=== PATIENT | female | born 1950 | race Caucasian/White ===

== ENCOUNTER → 2019-12-10 11:08 | Outpatient (BNVA) | payer MEDICARE, OTHER, SELFPAY | PROVIDERS: Family Provider Nurse Practitioner Family; PCP Nurse Practitioner Family; Visit Provider Nurse Practitioner Family | DX: Z86.39 Personal history of other endocrine, nutritional and metabolic disease (principal); E55.9 Vitamin D deficiency, unspecified; E78.2 Mixed hyperlipidemia; I10 Essential (primary) hypertension | CPT/HCPCS: 80053; 80061; 81003; 82306; 83036; 84443; 85025 ==

== ENCOUNTER → 2020-03-01 15:19 | Outpatient (BNVA) | payer MEDICARE, OTHER, SELFPAY | PROVIDERS: Family Provider Nurse Practitioner Family; PCP Nurse Practitioner Family; Visit Provider Nurse Practitioner Family | DX: Z11.59 Encounter for screening for other viral diseases (principal) | CPT/HCPCS: 87635 ==

== ENCOUNTER → 2020-07-12 11:27 | Outpatient (BNVA) | payer MEDICARE, OTHER, SELFPAY | PROVIDERS: Family Provider Nurse Practitioner Family; PCP Nurse Practitioner Family; Visit Provider Nurse Practitioner Family | DX: E78.2 Mixed hyperlipidemia (principal); Z86.39 Personal history of other endocrine, nutritional and metabolic disease; E55.9 Vitamin D deficiency, unspecified; I10 Essential (primary) hypertension | CPT/HCPCS: 80053; 80061; 82306; 83036; 84443; 85025 ==

== ENCOUNTER 2021-01-06 15:40 | Outpatient (CLI) | payer MEDICARE, OTHER, SELFPAY ==
--- NOTE | 2021-01-06 15:45 | USCV_ITS ---
Kim Frausto Age: 70 Gender: F : 1950 Exam Date: 01/06/2021 15:55 Ordering Phys: Brie Sexton MD ([email or web address]) Technologist: Mer Hedrick Exam Location: [facility] – [place] Indication: SHORTNESS OF BREATH BP: 129 / 82 HR: 93 Rhythm: Sinus Technical Quality: Adequate MEASUREMENTS (Male / Female) Normal Values 2D ECHO LV Diastolic Diameter PLAX 4.1 cm 4.2 - 5.9 / 3.9 - 5.3 cm LV Systolic Diameter PLAX 2.6 cm IVS Diastolic Thickness 1.3 cm 0.6 - 1.0 / 0.6 - 0.9 cm IVS Systolic Thickness 1.9 cm LVPW Diastolic Thickness 1.1 cm 0.6 - 1.0 / 0.6 - 0.9 cm LVPW Systolic Thickness 1.4 cm LVOT Diameter 2.0 cm LV Ejection Fraction 2D Teich 65.5 % LV Ejection Fraction MOD 2C 72.9 % LV Ejection Fraction 2C AL 73.3 % LA Diameter 2.5 cm LA Width 3.5 cm LA Height 4.0 cm RA Width 3.2 cm RA Height 4.3 cm Aorta at Sinotubular Diameter 2.7 cm M-MODE Aortic Annulus Diameter 2.4 cm LA Ao Ratio MM 1.0 MV E Point Septal Separation 0.3 cm DOPPLER AV Peak Velocity 125.0 cm/s LVOT Peak Velocity 104.0 cm/s AV Area Cont Eq vti 2.4 cm squared AV Area Cont Eq pk 2.6 cm squared MV Area PHT 3.6 cm squared Mitral E to A Ratio 0.8 MV E' Velocity 44.5 cm/s Mitral E to MV E' Ratio 8.1 Mitral E to LV E' Lateral Ratio 8.6 Mitral E to LV E' Septal Ratio 7.7 TR Peak Velocity 234.0 cm/s TR Peak Gradient 21.9 mmHg TV Peak E Velocity 44.0 cm/s Right Atrial Pressure 3.0 mmHg Pulmonary Artery Systolic Pressu 24.9 mmHg PV Peak Velocity 88.0 cm/s RV Acceleration Time 0.1 s RV Ejection Time 0.4 s RV AcT/ET 0.3 FINDINGS Left Ventricle Normal left ventricular cavity size. Normal left ventricular systolic function. No regional wall motion abnormalities. Left ventricular ejection fraction is estimated at 60 %. Grade I/IV diastolic dysfunction (abnormal relaxation filling pattern), normal to mildly elevated filling pressures. Right Ventricle The right ventricle is normal in size and function. Right Atrium The right atrium is normal in size. Left Atrium The left atrium is normal in size. Mitral Valve Structurally normal mitral valve without significant stenosis or prolapse. There is no mitral regurgitation. Aortic Valve Moderate aortic valve calcification. No aortic valve stenosis. No aortic valve regurgitation. Tricuspid Valve Structurally normal tricuspid valve without significant stenosis or regurgitation. Pulmonary artery systolic pressure is normal. Pulmonic Valve Structurally normal pulmonic valve without significant stenosis. There is no pulmonic regurgitation. Pericardium Normal pericardium without effusion. Aorta Normal ascending aorta dimension. CONCLUSIONS 1-Normal left ventricular cavity size. Normal left ventricular systolic function. No regional wall motion abnormalities. Left ventricular ejection fraction is estimated at 60 %. Grade I/IV diastolic dysfunction (abnormal relaxation filling pattern), normal to mildly elevated filling pressures. 2-Moderate aortic valve calcification. No aortic valve stenosis. No aortic valve regurgitation. 3-There is no pericardial effusion. 4-Right atrial pressure is around 5 mm of mercury. 5-No significant change since the prior echocardiogram study of 03/26/2018. Brie Sexton MD (Electronically Signed) Final Date: 09 January 2021 20:46 S
== END 2021-01-06 15:41 | disposition home or self-care (01) ==
LOC: US 15:43
PROVIDERS: PCP Nurse Practitioner Family; Visit Provider Internal Medicine Cardiovascular Disease
DX: R06.02 Shortness of breath (principal); I70.0 Atherosclerosis of aorta
CPT/HCPCS: 93306

== ENCOUNTER 2021-08-08 09:55 | Outpatient (CLI) | payer MEDICARE, OTHER, SELFPAY ==
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
== END 2021-08-08 09:56 | disposition home or self-care (01) ==
LOC: RAD 09:57
PROVIDERS: PCP Nurse Practitioner Family; Visit Provider Nurse Practitioner
DX: M79.671 Pain in right foot (principal); R07.81 Pleurodynia
CPT/HCPCS: 71100; 73630

== ENCOUNTER → 2021-08-31 00:01 | Outpatient (BNVA) | payer MEDICARE, OTHER, SELFPAY | PROVIDERS: PCP Nurse Practitioner Family; Visit Provider Nurse Practitioner | DX: M79.605 Pain in left leg (principal); F41.9 Anxiety disorder, unspecified; Z86.39 Personal history of other endocrine, nutritional and metabolic disease; Z79.899 Other long term (current) drug therapy; E55.9 Vitamin D deficiency, unspecified | CPT/HCPCS: 80053; 82306; 83036; 85025 ==

== ENCOUNTER 2021-09-14 08:47 | Outpatient (CLI) | payer MEDICARE, OTHER, SELFPAY ==
--- NOTE | 2021-09-14 09:18 | XR_ITS ---
WS: [id number] Lumbar spine, 3 views, 09/14/2021 Clinical Data: M54.50 - Low back pain, unspecified Comparison: Lateral lumbar spine, 04/04/2015. Findings: No compression fractures are seen. There is subluxation of 0.3 cm of L4 on L5. There is degenerative disc narrowing at every level from T10-T11 to L5-S1. There is osteoarthritic spurring of all the lowe r thoracic and lumbar vertebral bodies.There is a minimal dextroscoliosis of the lumbar spine. The tr ansverse processes and SI joints are normal. There is a large amount of fecal material throughout the colon. There are clips in the right upper quadrant from a cholecystectomy. XR/XR lumbar spine 2-3V* [id number] Impression: 1. Degenerative disc narrowing at every level from T10-T11 to L5-S1 with accomp anying osteophyte formation. 2. Subluxation is 0.3 cm of L4 and L5 with a mild dextroscoliosis.
--- NOTE | 2021-09-14 09:30 | USCV_ITS ---
Kim Frausto Age: 71 Gender: F : 1950 Exam Date: 09/14/2021 09:07 Ordering Phys: Julia FerreiraP [employer]ILROAD [employer]ER Technologist: JP Exam Location: [facility] [place] Indication: lt leg pain PROCEDURES: Venous duplex imaging was performed in only the left lower extremity. The following venous structures were evaluated: common femoral vein, profunda vein, proximal portion of the greater saphenous vein, superficial femoral vein, and the popliteal vein. In addition, the posterior tibial and peroneal trunk were evaluated. FINDINGS: Normal 2-D Doppler and augmentation and compressibility throughout the lower extremity venous structures. Additional imaging through the proximal calf veins also reveals no thrombus. Limited evaluation of the greater saphenous vein is patent with no thrombus.. CONCLUSIONS No evidence of left lower extremity DVT. Vinayak Mann MD (Electronically Signed) Final Date: 14 Sep 2021 13:00 S
== END 2021-09-14 08:48 | disposition home or self-care (01) ==
LOC: RAD 08:50
PROVIDERS: PCP Nurse Practitioner Family; Visit Provider Nurse Practitioner
DX: M79.605 Pain in left leg (principal); M54.50 Low back pain, unspecified; M47.896 Other spondylosis, lumbar region
CPT/HCPCS: 72100; 93971

== ENCOUNTER 2021-09-23 12:58 | Emergency (ER) | payer MEDICARE, OTHER, SELFPAY ==
[2021-09-23 14:10] VITALS: BP 144/70; PULSE 65; RESP 16; TEMP 36.9; O2SAT 96; BMI 28.3
--- NOTE | 2021-09-23 16:38 | USR_ITS ---
PROCEDURE INFORMATION: Exam: US Duplex Left Lower Extremity Veins, Limited Exam date and time: 09/23/2021 4:49 PM Age: 71 years old Clinical indication: Edema, localized; Lower extremity, left; Additional info: Left leg pain and swelling. Calf tenderness TECHNIQUE: Imaging protocol: Real-time Duplex ultrasound of the Left Lower Extremity with 2-D lockwood scale, color Doppler flow and spectral waveform analysis with image documentation. Limited exam focused on the left lower extremity veins. COMPARISON: No relevant prior studies available. FINDINGS: Left deep veins: The common femoral, femoral, proximal profunda femoral and popliteal veins are patent without thrombus. Normal Doppler waveforms. Normal compressibility and/or augmentation response. Calf vein assessment is limited due to body habitus and soft tissue swelling. Left superficial veins: Unremarkable. Saphenofemoral junction is patent without thrombus. Soft tissues: Mild subcutaneous edema is [place]. US/[place] [id number] IMPRESSION: No evidence of deep vein thrombosis.
[2021-09-23] MEDS: HYDROcodone-acetaminophen 5-325 mg Tablet 1 TAB PO (16:44)
--- NOTE | 2021-09-23 16:45 | W.ED.EXTPRO ---
HPI - Extremity Problem General: Chief complaint: Extremity Problem,Nontraumatic Stated complaint: severe left leg pain Time Seen by Provider: 09/23/21 16:22 History of Present Illness: Patient is a 71-year-old female comes to the ED with left lower leg pain. Patient has been having this pain now for the past 2 months. She is seeing her primary care physician about left leg pain approximately 2 weeks ago and they did an ultrasound venous duplex and ruled out a DVT. Primary care physician was going to refer patient to Ortho for follow-up. Patient says her pain is progressively gotten worse over the past week. Pain located on the medial aspect of the left knee. Pain worsens with weightbearing. She reports some leg swelling as well. Denies any chest pain, shortness of breath or hemoptysis. Patient takes naproxen to help with pain. Associated symptoms: Deny chest pain, fever(s) or rash Review of Systems Const: Denies: fever(s), chills or fatigue Eyes: Denies: change in vision or eye discomfort ENMT: Denies: throat pain, odynophagia, nasal discharge or nasal congestion Card: Denies: chest pain, palpitations, edema, swelling of feet/ankles, dyspnea on exertion or orthopnea Resp: Denies: dyspnea, productive cough or non-productive cough GI: Denies: abdominal pain, nausea, vomiting, diarrhea, constipation or hematochezia : Denies: flank pain, dysuria or hematuria Musc: Reports: extremity pain (Left knee) and extremity swelling (Left lower leg); Denies: neck pain or back pain Skin/Breast: Denies: rash or new lesions Neuro: Denies: headache(s), numbness in extremities or weakness in extremities PFSH ED PFSH: Medical History History of hypertension Hx of cardiac murmur Hx of diastolic dysfunction Hx of diverticulitis of colon Hx of gastritis Hx of osteoarthritis Hx of rheumatoid arthritis Hx of thrombocytopenia Hx of type 2 diabetes mellitus Mixed hyperlipidemia Murmur Uncontrolled hypertension Vitamin D deficiency Surgical History History of back surgery Hx of cholecystectomy Hx of tubal ligation Social History Smoking and tobacco status: never smoked Physical Exam Const: COMMON NORMALS: no acute distress, patient oriented x3 and alert GENERAL APPEARANCE: cooperative and comfortable HENMT: COMMON NORMALS: normocephalic HEAD & SCALP: normocephalic MOUTH: Normal oral and palatal mucosa present THROAT: posterior oropharynx normal and uvula midline Neck/C-Spine: COMMON NORMALS: supple GENERAL: Yes normal visual inspection Resp: COMMON NORMALS: normal respiratory effort, No retractions, No use of accessory muscles and clear to auscultation bilaterally AUSCULTATION: clear to auscultation bilaterally Cardio: COMMON NORMALS: regular rate, regular rhythm, S1 normal heart sound present, S2 normal heart sound present, No gallops present (Cardio), No clicks present (Cardio), No murmurs present (Cardio) and Peripheral pulses 2+ throughout RATE: regular rate RHYTHM: regular rhythm HEART SOUNDS: S1 normal heart sound present and S2 normal heart sound present PERIPHERAL PULSES: Peripheral pulses 2+ throughout GI: COMMON NORMALS: Normal to inspection, nondistended, normoactive bowel sounds present, Soft to palpation, non-tender and no masses PALPATION: Yes Soft to palpation : COMMON NORMALS: Yes no CVA tenderness BLADDER/KIDNEY EXAM: Yes no CVA tenderness Back/Pelvis: COMMON NORMALS: no CVA tenderness Extremity: COMMON NORMALS: normal to inspection NARRATIVE EXTREMITY EXAM: Patient also has some tenderness to the medial aspect of the left knee. GENERAL: Yes calf tenderness (Left calf tenderness) and Yes edema (1+ pitting edema to left lower leg) Neuro: COMMON NORMALS: patient oriented x3 and moves all extremities SENSORIUM/ORIENTATION: Yes alert Skin: GENERAL SKIN EXAM: dry skin Course Vital Signs: Vital signs: Vital Signs Temperature 98.4 F 09/23/21 14:10 Pulse Rate 65 09/23/21 14:10 Respiratory Rate 16 09/23/21 14:10 Blood Pressure 144/70 09/23/21 14:10 Pulse Oximetry 96 09/23/21 14:10 MDM - Extremity (Nontraumatic) Medical Decision Making Patient is a 71-year-old female comes to the ED with left lower extremity pain and swelling. Denies any known injury or trauma recently to cause worsening pain. This has been going on now for almost 2 months. Last 2 weeks the pain and swelling has gotten worse. She is seen her primary care doctor and they are referring her to Ortho for follow-up. Denies any chest pain, shortness of breath or hemoptysis. Vitals are stable. Here in the ED she does have some left calf tenderness and also some tenderness over the medial aspect of left knee. She has 1+ pitting edema to left lower leg. Neuro vas distally. Rest of exam is benign. X-ray of left knee showed no acute findings. Ultrasound venous duplex of left lower extremity showed no DVTs. Patient was diagnosed with left knee pain and was discharged home. I put in a referral to Ortho for patient to further evaluate left knee pain. Patient was discharged home with a prescription for couple hydrocodone to help with any acute pain. Return ED precautions given. Follow-up with PCP in the next week for reevaluation. Patient is to agree with plan. Lab Data Radiology Impressions Venous Duplex 09/23/21 16:38 IMPRESSION: No evidence of deep vein thrombosis. Knee X-Ray 09/23/21 16:47 IMPRESSION: No acute findings. Discharge Plan Discharge Patient Disposition: Home Clinical Impression: Left knee pain Qualifiers: Chronicity: unspecified Qualified Code(s): M25.562 - Pain in left knee Condition: Stable Prescriptions: New ondansetron 4 mg tablet,disintegrating 4 mg PO Q8H PRN (Reason: nausea and vomiting) Qty: 10 0RF No Action aspirin [Adult Low Dose Aspirin] 81 mg tablet,delayed release (DR/EC) 81 mg PO DAILY 0RF fluticasone propionate 50 mcg/actuation spray,suspension 2 spray INTRANASAL DAILY PRN (Reason: allergy symptoms) 0RF hydroxyzine HCl 10 mg tablet 10 mg PO BID PRN (Reason: anxiety) Qty: 20 0RF isosorbide dinitrate 30 mg tablet 15 mg PO DAILY Qty: 90 3RF hydrochlorothiazide 12.5 mg tablet 12.5 mg PO DAILY Qty: 90 3RF lisinopril 5 mg tablet 5 mg PO DAILY Qty: 90 3RF omeprazole 40 mg capsule,delayed release(DR/EC) See Rx Instructions .ROUTE .COMPLEX Qty: 30 5RF Dose Instruction: TAKE ONE CAPSULE BY MOUTH EVERY DAY Rx Instructions: TAKE ONE CAPSULE BY MOUTH EVERY DAY cholecalciferol (vitamin D3) 1,250 mcg (50,000 unit) capsule See Rx Instructions .ROUTE .COMPLEX Qty: 4 2RF Dose Instruction: TAKE ONE CAPSULE BY MOUTH ONCE A WEEK Rx Instructions: TAKE ONE CAPSULE BY MOUTH ONCE A WEEK potassium chloride 20 mEq tablet,ER particles/crystals See Rx Instructions .ROUTE .COMPLEX Qty: 30 5RF Dose Instruction: TAKE ONE TABLET BY MOUTH EVERY DAY Rx Instructions: TAKE ONE TABLET BY MOUTH EVERY DAY gabapentin 300 mg capsule See Rx Instructions .ROUTE .COMPLEX Qty: 90 5RF Dose Instruction: TAKE THREE CAPSULES BY MOUTH DAILY FOR 30 DAYS Rx Instructions: TAKE THREE CAPSULES BY MOUTH DAILY FOR 30 DAYS naproxen 500 mg tablet See Rx Instructions .ROUTE .COMPLEX Qty: 60 5RF Dose Instruction: TAKE ONE TABLET BY MOUTH TWICE DAILY WITH FOOD Rx Instructions: TAKE ONE TABLET BY MOUTH TWICE DAILY WITH FOOD glipizide 2.5 mg tablet extended release 24hr See Rx Instructions .ROUTE .COMPLEX Qty: 30 5RF Dose Instruction: TAKE ONE TABLET BY MOUTH DAILY Rx Instructions: TAKE ONE TABLET BY MOUTH DAILY amlodipine 5 mg tablet 5 mg PO DAILY Qty: 30 0RF Rx Instructions: Must make a follow-up for further refills Discharge Orders: Discharge ED (Routine); Ordered 09/23/21 Ordered By: Shyam De La Garza Referrals: Julia Ferreira FNP [Primary Care Provider] - Discharge Diet: Regular Discharge Activity: Increase activity as tolerated Patient Instructions: Opioid Safety Activity Restrictions/Additional Instructions: Follow-up with medical provider as directed. Case management should be contacting you next several days to set up an appoint with Ortho for further follow-up on left knee and leg pain. Take medications as prescribed. Return to the ER or your medical provider if condition worsens. Please read and understand discharge instructions. Thank you for choosing [facility] for your healthcare needs today. Please realize this is an emergency room and that we are providing you with a medical screening exam and this may not be complete and all inclusive of all the testing and or work up that you may need to determine your ailment or severity of your illness. It is very important that you follow up as instructed or that you return to the Emergency Department should you have concerns or if your condition changes or worsens in any way. Coding Level of Care Code ED Band Instrument Repairer for Lebron Donald Exam Comprehensive
--- NOTE | 2021-09-23 16:47 | XRR_ITS ---
PROCEDURE INFORMATION: Exam: XR Left Knee Exam date and time: 09/23/2021 5:16 PM Age: 71 years old Clinical indication: Pain; Knee; Left; Additional info: Left knee pain TECHNIQUE: Imaging protocol: XR Left knee. Views: 3 views. COMPARISON: [place] [id number] 09/23/2021 4:49 PM FINDINGS: Bones/joints: Probable osteopenia. Minimal patella spurring consistent with early degenerative disease. No acute fracture dislocation or significant joint effusion. Soft tissues: Normal. Vasculature: Arterial calcifications. Other findings: Three views submitted. XR/XR knee LT 3V* [id number] IMPRESSION: No acute findings.
--- NOTE | 2021-09-24 08:40 | DCPLANNER ---
Addendum entered by Ingrid Frederick 12/19/21 15:52: Patient had a follow up appointment scheduled with ortho - patient did attend appointment. Addendum entered by Ingrid Frederick 10/04/21 13:37: Patient has a follow up appointment scheduled for Saturday, November 22, 2021 at 3:[address] Shoemaker at ortho. Clinic will call patient with appointment information. Original Note: manager transport had message to schedule a follow up appointment for patient with ortho. manager transport sent patients information to the front office staff at ortho. Patients information will be printed and reviewed. Clinic will call patient with appointment information.
== END 2021-09-23 18:12 | disposition home or self-care (01) ==
PROVIDERS: Emergency Provider Physician Assistant; PCP Nurse Practitioner
DX: M25.562 Pain in left knee (principal); M79.89 Other specified soft tissue disorders
CPT/HCPCS: 73562; 93971; 99283

== ENCOUNTER 2021-10-10 06:49 | Outpatient (CLI) | payer MEDICARE, OTHER, SELFPAY ==
--- NOTE | 2021-10-10 07:30 | MR_ITS ---
WS: [id number] MRI LEFT KNEE NONCONTRAST TECHNIQUE: Axial PD, coronal PD fat sat, coronal PD, sagittal PD, and sagittal PD fat-sat images obta ined. CLINICAL INFORMATION: M25.562 - Pain in left knee COMPARISON: None. FINDINGS: Slightly depressed fracture involving the medial tibial plateau with visualized fracture li ne. Diffuse edema involving the proximal tibia extending to the articular surface. Fracture extends a nterior posterior extension into the articular surface posteriorly. Depression measures approximately 2 to 3 mm. Advanced chondromalacia involving the medial joint compartment. Distal quadriceps and patella tendons are intact. Hypertrophic patella. Superior pole patella entheso phyte. Mild chronic thinning of the ACL. ACL and PCL appear intact. Horizontal tear involving the pos terior horn medial meniscus extending to the articular surface. This extends to the meniscal root and free edge of the meniscus. Peripheral extrusion of the medial meniscus. Lateral meniscus is intact. Lateral collateral ligament appears intact. Popliteus is intact. Grade one injury MCL which is intact . Moderate chondromalacia patella. Small suprapatellar effusion. Medial and lateral patella retinaculum appear intact. Tiny popliteal cyst measuring 10 x 7 x 21 mm. Femoral condyles appear normal. MR/MR knee LT wo con* [id number] IMPRESSION: 1. Minimally depressed fracture involving the medial tibial plateau with diffu se edema. Visualized fracture line extending to the articular surface in the me dial tibial plateau posteriorly. 2. Horizontal tear involving the posterior horn medial meniscus extending to t he articular surface with peripheral extrusion of the meniscus. Advanced loss o f joint space medial joint compartment with grade IV chondromalacia. 3. Mild chronic thinning of the ACL which appears intact. Normal PCL. 4. Small suprapatellar effusion with moderate chondromalacia patella. 5. Medial and lateral collateral ligaments appear intact. Grade one injury MCL with fluid and edema deep to the MCL. Outbridge grading: grade IV: full-thickness cartilage loss with underlying bone reactive changes
== END 2021-10-10 06:50 | disposition home or self-care (01) ==
LOC: RAD 06:50
PROVIDERS: PCP Nurse Practitioner; Visit Provider Nurse Practitioner
DX: M25.562 Pain in left knee (principal); S82.145A Nondisplaced bicondylar fracture of left tibia, initial encounter for closed fracture; X58.XXXA Exposure to other specified factors, initial encounter; M23.222 Derangement of posterior horn of medial meniscus due to old tear or injury, left knee; M22.42 Chondromalacia patellae, left knee
CPT/HCPCS: 73721

== ENCOUNTER → 2021-10-18 15:17 | Outpatient (BNVA) | payer MEDICARE, OTHER, SELFPAY | PROVIDERS: PCP Nurse Practitioner; Referring Provider Nurse Practitioner; Visit Provider Orthopaedic Surgery | DX: S82.13 Fracture of medial condyle of tibia (principal); S83.249A Other tear of medial meniscus, current injury, unspecified knee, initial encounter; V89.2XXA Person injured in unspecified motor-vehicle accident, traffic, initial encounter | CPT/HCPCS: 99204 ==

== ENCOUNTER → 2021-11-15 10:57 | Outpatient (BNVA) | payer MEDICARE, OTHER, SELFPAY | PROVIDERS: PCP Nurse Practitioner; Visit Provider Orthopaedic Surgery | DX: S82.13 Fracture of medial condyle of tibia (principal); S83.249A Other tear of medial meniscus, current injury, unspecified knee, initial encounter; V89.2XXA Person injured in unspecified motor-vehicle accident, traffic, initial encounter | CPT/HCPCS: 99213 ==

== ENCOUNTER 2021-11-28 06:00 | Outpatient (RCR) | payer MEDICARE, OTHER, SELFPAY | END 2021-12-27 23:59 | disposition home or self-care (01) | LOC: WPT 06:00 | PROVIDERS: PCP Nurse Practitioner; Visit Provider Orthopaedic Surgery | DX: M25.562 Pain in left knee (principal) | CPT/HCPCS: 97110; 97112; 97162 ==

== ENCOUNTER 2021-12-28 06:00 | Outpatient (RCR) | payer MEDICARE, OTHER, SELFPAY | END 2022-01-26 23:59 | disposition home or self-care (01) | LOC: WPT 06:00 | PROVIDERS: PCP Nurse Practitioner; Visit Provider Orthopaedic Surgery | DX: M25.562 Pain in left knee (principal) | CPT/HCPCS: 97110 ==

== ENCOUNTER 2022-01-10 06:47 | Outpatient (CLI) | payer MEDICARE, OTHER, SELFPAY ==
--- NOTE | 2022-01-10 07:00 | CT_ITS ---
WS: [id number] CT HEAD NONCONTRAST HISTORY: R53.1 - Weakness TECHNIQUE: Contiguous axial imaging performed through the brain in 2.5 mm imaging. Bone and soft tiss ue windows. Sagittal and coronal reformats reviewed. All CT scans at [facility] use at least one of these dose optimization techniques: automated exposure control; mA and/or kV adjustment per pa tient size (includes targeted exams where dose is matched to clinical indication); or iterative recon struction. DLP: 977.06 mGy.cm COMPARISON: None available. No acute intracranial hemorrhage, midline shift or mass effect. Mild atrophy and mild small vessel ischemic disease. Prior lacunar infarct anterior limb LEFT interna l capsule. Ventricles: Normal size with no hydrocephalus. No inferior displacement of cerebellar tonsils. Paranasal sinuses: As visualized are clear. Mastoid air cells: Well pneumatized. Calvarium and scalp: Skull is intact with no soft tissue edema or swelling. CT/CT head wo con* [id number] IMPRESSION: 1. No acute intracranial hemorrhage or edema. 2. Mild atrophy and mild small vessel ischemic disease. 3. Chronic lacunar infarct anterior limb LEFT internal capsule.
== END 2022-01-10 06:48 | disposition home or self-care (01) ==
LOC: RAD 06:48
PROVIDERS: PCP Nurse Practitioner; Visit Provider Nurse Practitioner
DX: R53.1 Weakness (principal); I63.9 Cerebral infarction, unspecified
CPT/HCPCS: 70450

== ENCOUNTER 2022-01-27 06:00 | Outpatient (RCR) | payer MEDICARE, OTHER, SELFPAY | END 2022-02-26 23:59 | disposition home or self-care (01) | LOC: WPT 06:00 | PROVIDERS: PCP Nurse Practitioner; Visit Provider Orthopaedic Surgery | DX: M25.562 Pain in left knee (principal) | CPT/HCPCS: 97110; 97112 ==

== ENCOUNTER → 2022-02-01 08:52 | Outpatient (BNVA) | payer MEDICARE, OTHER, SELFPAY | PROVIDERS: PCP Nurse Practitioner; Visit Provider Nurse Practitioner | DX: Z86.39 Personal history of other endocrine, nutritional and metabolic disease (principal) | CPT/HCPCS: 83036 ==

== ENCOUNTER 2022-02-27 06:00 | Outpatient (RCR) | payer MEDICARE, OTHER, SELFPAY | END 2022-03-28 23:59 | disposition home or self-care (01) | LOC: WPT 06:00 | PROVIDERS: PCP Nurse Practitioner; Visit Provider Orthopaedic Surgery | DX: R53.1 Weakness (principal); R27.0 Ataxia, unspecified | CPT/HCPCS: 97110; 97112; 97116; 99214 ==

== ENCOUNTER → 2022-03-13 13:26 | Outpatient (BNVA) | payer MEDICARE, OTHER, SELFPAY | PROVIDERS: PCP Nurse Practitioner; Visit Provider Orthopaedic Surgery | DX: M25.562 Pain in left knee (principal) | CPT/HCPCS: 99212 ==

== ENCOUNTER 2022-03-29 06:00 | Outpatient (RCR) | payer MEDICARE, OTHER, SELFPAY | END 2022-04-28 23:59 | disposition home or self-care (01) | LOC: WPT 06:00 | PROVIDERS: PCP Nurse Practitioner; Visit Provider Psychiatry & Neurology Neurology | DX: R53.1 Weakness (principal); R27.0 Ataxia, unspecified | CPT/HCPCS: 97110; 97112; 97116; 97163; 97530 ==

== ENCOUNTER 2022-04-19 10:18 | Outpatient (CLI) | payer MEDICARE, OTHER, SELFPAY ==
--- NOTE | 2022-04-19 13:00 | USCV_ITS ---
Kim Frausto Age: 72 Gender: F : 1950 Exam Date: 04/19/2022 10:40 Ordering Phys: Db Bennett MD ([email or web address]) Technologist: Tamela Gandhi Exam Location: [facility] – [place] Indication: CVA BP: 112 / 60 HR: 76 Rhythm: Sinus Technical Quality: Adequate MEASUREMENTS (Male / Female) Normal Values 2D ECHO LV Diastolic Diameter PLAX 4.0 cm 4.2 - 5.9 / 3.9 - 5.3 cm LV Systolic Diameter PLAX 2.0 cm LV Chamber Size 3.6 cm IVS Diastolic Thickness 1.2 cm 0.6 - 1.0 / 0.6 - 0.9 cm IVS Systolic Thickness 1.8 cm LVPW Diastolic Thickness 1.2 cm 0.6 - 1.0 / 0.6 - 0.9 cm LVPW Systolic Thickness 1.9 cm RV Chamber Size 3.7 cm LVOT Diameter 2.0 cm LV Ejection Fraction 2D Teich 81.1 % LV Ejection Fraction MOD 2C 58.2 % LV Ejection Fraction 2C AL 58.8 % LA Diameter 2.8 cm LA Width 3.3 cm LA Height 3.8 cm RA Width 3.2 cm RA Height 3.7 cm Aorta at Sinotubular Diameter 2.9 cm IVC Diameter 2.1 cm M-MODE Aortic Annulus Diameter 3.7 cm LA Ao Ratio MM 0.8 MV E Point Septal Separation 0.3 cm DOPPLER AV Peak Velocity 167.0 cm/s LVOT Peak Velocity 127.0 cm/s AV Area Cont Eq vti 3.0 cm squared AV Area Cont Eq pk 2.5 cm squared MV Area PHT 3.7 cm squared Mitral E to A Ratio 0.7 MV E' Velocity 42.5 cm/s Mitral E to MV E' Ratio 8.2 Mitral E to LV E' Lateral Ratio 10.6 Mitral E to LV E' Septal Ratio 6.7 TR Peak Velocity 200.5 cm/s TR Peak Gradient 16.1 mmHg TR Mean Velocity 111.8 cm/s TR Mean Gradient 6.2 mmHg TR Velocity Time Integral 45.2 cm TV Peak E Velocity 57.0 cm/s Right Atrial Pressure 3.0 mmHg Pulmonary Artery Systolic Pressu 19.1 mmHg RV Acceleration Time 0.2 s RV Ejection Time 0.3 s RV AcT/ET 0.5 FINDINGS Left Ventricle Normal left ventricular size and systolic function, EF 64 %. No regional wall motion abnormalities. Mild left ventricular hypertrophy. Grade I/IV diastolic dysfunction (abnormal relaxation filling pattern), normal to mildly elevated filling pressures. Right Ventricle The right ventricle is normal in size and function. Right Atrium The right atrium is normal in size. Left Atrium Mildly increased left atrial size. Mitral Valve No Gross abnormalities noted Aortic Valve Thickened aortic valve. Tricuspid Valve Mild tricuspid valve regurgitation. Pulmonic Valve No gross abnormalities noted Pericardium Normal pericardium without effusion. Aorta Normal aortic annulus size. IVC Normal inferior vena cava. CONCLUSIONS Normal left ventricular size and systolic function, EF 64 %. No regional wall motion abnormalities. Mild left ventricular hypertrophy. Grade I/IV diastolic dysfunction (abnormal relaxation filling pattern), normal to mildly elevated filling pressures. Mildly increased left atrial size. Thickened aortic valve. Mild tricuspid valve regurgitation. Estimated pulmonary artery peak systolic pressure of 19 mmHg. There is no pericardial effusion. There are no intracardiac masses. Compared to the previous study from 01/06/2021, there may not be a significant change Dr Db Bennett MD FAC (Electronically Signed) Final Date: 19 April 2022 20:34 S
== END 2022-04-19 10:19 | disposition home or self-care (01) ==
LOC: RAD 10:22
PROVIDERS: PCP Nurse Practitioner; Visit Provider Internal Medicine Cardiovascular Disease
DX: R53.1 Weakness (principal); I63.9 Cerebral infarction, unspecified; I08.2 Rheumatic disorders of both aortic and tricuspid valves
CPT/HCPCS: 93306

== ENCOUNTER 2022-04-29 06:00 | Outpatient (RCR) | payer MEDICARE, OTHER, SELFPAY | END 2022-05-29 23:59 | disposition home or self-care (01) | LOC: WPT 06:00 | PROVIDERS: PCP Nurse Practitioner; Visit Provider Psychiatry & Neurology Neurology | DX: R53.1 Weakness (principal); R27.0 Ataxia, unspecified | CPT/HCPCS: 97110; 97112; 97116; 97530 ==

== ENCOUNTER → 2022-05-02 13:51 | Outpatient (BNVA) | payer MEDICARE, OTHER, SELFPAY | PROVIDERS: PCP Nurse Practitioner; Visit Provider Family Medicine | DX: I69.30 Unspecified sequelae of cerebral infarction (principal); I10 Essential (primary) hypertension; E11.8 Type 2 diabetes mellitus with unspecified complications | CPT/HCPCS: 80053; 80061; 82607; 82746; 83036; 84443; 85025; 86592 ==

== ENCOUNTER 2022-05-30 06:00 | Outpatient (RCR) | payer MEDICARE, OTHER, SELFPAY | END 2022-06-26 23:59 | disposition home or self-care (01) | LOC: WPT 06:00 | PROVIDERS: PCP Nurse Practitioner; Visit Provider Psychiatry & Neurology Neurology | DX: I00-I99 Diseases of the circulatory system (principal); R53.1 Weakness; R27.0 Ataxia, unspecified | CPT/HCPCS: 97110; 97112; 97530 ==

== ENCOUNTER 2022-06-27 06:00 | Outpatient (RCR) | payer MEDICARE, OTHER, SELFPAY | END 2022-07-27 23:59 | disposition home or self-care (01) | LOC: WPT 06:00 | PROVIDERS: PCP Nurse Practitioner; Visit Provider Psychiatry & Neurology Neurology | DX: R53.1 Weakness (principal); R27.0 Ataxia, unspecified | CPT/HCPCS: 97110; 97112; 97530 ==

== ENCOUNTER → 2022-07-03 09:59 | Outpatient (BNVA) | payer MEDICARE, OTHER, SELFPAY | PROVIDERS: PCP Nurse Practitioner; Visit Provider Internal Medicine Cardiovascular Disease | DX: R06.09 Other forms of dyspnea (principal); E78.2 Mixed hyperlipidemia; E11.9 Type 2 diabetes mellitus without complications; Z79.84 Long term (current) use of oral hypoglycemic drugs; I11.9 Hypertensive heart disease without heart failure | CPT/HCPCS: 99214 ==

== ENCOUNTER 2022-08-01 08:25 | Outpatient (CLI) | payer MEDICARE, OTHER, SELFPAY ==
--- NOTE | 2022-08-01 | ECG_ITS ---
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 Interpretive Statements NAME OF STUDY: LEXISCAN SESTAMIBI STRESS TEST INDICATION: Shortness of Breath; Fatigue PROCEDURE: At the baseline, the EKG revealed sinus bradycardia with a poor R wave progression. Some nonspecific T wave changes. The baseline heart was 58 bpm with a blood pressue of 147/63 mm of Hg Lexiscan was infused over a period of 20 seconds. A total of 0.4 milligrams of Lexiscan was infused. The stress phase was continued for a total of 5 minutes. Heart rate at the end of the stress phase was 88 bpm with a blood pressure 120/58 mm of Hg. The EKG at the peak infusion revealed no significant changes. Sestamibi was injected 20 seconds after the Lexiscan infusion. Heart rate at the end of the recovery phase was 83 bpm with a blood pressure of 136/64 mm of Hg. CONCLUSION: 1. No significant EKG changes with the LexiScan infusion 2. No LexiScan induced chest pain or cardiac arrhythmia 3. Normal blood pressure and heart rate response 4. Sestamibi/sestamibi perfusion scan pending; see separate report. Electronically Signed On 08-04-2022 21:53:56 CDT by Db Bennett M.D. [id number]
[2022-08-01 09:14] VITALS: BMI 25.7
--- NOTE | 2022-08-01 09:31 | NMCV_ITS ---
NM bala perf SPECT r/s* [id number] Kim Frausto Age: 72 Gender: F : 1950 Exam Date: 08/01/2022 10:09 Ordering Phys: Db Bennett MD ([email or web address]) Technologist: GAMALIEL Garcia Exam Location: [facility] Indications: CORONARY ANGIOPLASTY STATUS, SHORTNESS OF BREATH STRESS TEST [facility] IMAGE PROTOCOL Rest/Stress 1 Lexiscan Day Radiopharmaceutical Dose (mCi) Administration Site Administered by Rest: Tc-99m 10.8 IV GAMALIEL Escobedo Sestamibi Stress:Tc-99m 32.6 IV GAMALIEL Escobedo Sestamibi Rest: 01-Aug-2022 60 Discovery 630 Stress: 01-Aug-2022 30 Discovery 630 0.4mg Lexiscan. Images obtained in supine and prone position. SPECT RESULTS Technical Quality: Excellent Raw Data Analysis: Normal Image Corrections: No attenuation or motion correction applied Summed Stress Score: 4 Summed Rest Score: 5 Summed Difference Score: 1 PERFUSION FINDINGS Small area of decreased tracer uptake was noted in the mid inferolateral and apical lateral region. Complete reversibility was noted in this region at rest. A small area of slightly decreased tracer uptake was noted in the basal inferior region showing reversibility only in the supine position. With the prone imaging, there was no significant perfusion defect in this area. FUNCTIONAL RESULTS (calculated via Gated SPECT) Stress Image LV EF (%): 90 Stress EDV (mL):60 TID: 0.91 Stress ESV (mL):6 FUNCTIONAL FINDINGS: Segmental wall motion analysis revealing no gross wall motion abnormalities IMPRESSIONS 1. Myocardial perfusion imaging revealing a small area of reversible defect in the mid inferolateral and apical lateral region suggesting ischemia in the distribution of the left circumflex artery. Small area of inconsistent reversible defect in the basal inferior wall region, most likely artifactual. 2. Normal LV ejection fraction for 90% 3. LV wall motion analysis revealing no gross wall motion abnormalities. 4. Normal LV volume No similar previous studies are available for comparison, Dr Db Bennett MD [facility] (Electronically Signed) Final Date: 01 August 2022 17:00 S
[2022-08-01] MEDS: regadenoson 0.4 Mg/5 ml Syringe IVP (10:47)
[2022-08-01 11:16] VITALS: BP 140/67; PULSE 83
== END 2022-08-01 08:26 | disposition home or self-care (01) ==
LOC: CDL 08:32
PROVIDERS: PCP Nurse Practitioner; Visit Provider Internal Medicine Cardiovascular Disease
DX: R06.02 Shortness of breath (principal); R53.83 Other fatigue
CPT/HCPCS: 36415; 78452; 93017; 96374; A9500; J2785

== ENCOUNTER 2022-09-06 06:00 | Outpatient (RCR) | payer MEDICARE, OTHER, SELFPAY | END 2022-09-26 23:59 | disposition home or self-care (01) | LOC: WOT 06:00 | PROVIDERS: PCP Nurse Practitioner; Visit Provider Nurse Practitioner | DX: I69.30 Unspecified sequelae of cerebral infarction (principal) | CPT/HCPCS: 97165; 97530 ==

== ENCOUNTER 2022-09-27 06:00 | Outpatient (RCR) | payer MEDICARE, OTHER, SELFPAY | END 2022-10-26 23:59 | disposition home or self-care (01) | LOC: WOT 06:00 | PROVIDERS: PCP Nurse Practitioner; Visit Provider Nurse Practitioner | DX: I69.30 Unspecified sequelae of cerebral infarction (principal) | CPT/HCPCS: 97110; 97530 ==

== ENCOUNTER 2022-10-27 06:00 | Outpatient (RCR) | payer MEDICARE, OTHER, SELFPAY | END 2022-11-26 23:59 | disposition home or self-care (01) | LOC: WOT 06:00 | PROVIDERS: PCP Nurse Practitioner; Visit Provider Nurse Practitioner | DX: I69.30 Unspecified sequelae of cerebral infarction (principal) | CPT/HCPCS: 97110; 97530 ==

== ENCOUNTER 2022-11-27 06:00 | Outpatient (RCR) | payer MEDICARE, OTHER, SELFPAY | END 2022-12-27 23:59 | disposition home or self-care (01) | LOC: WOT 06:00 | PROVIDERS: PCP Nurse Practitioner; Visit Provider Nurse Practitioner | DX: I69.30 Unspecified sequelae of cerebral infarction (principal) | CPT/HCPCS: 97110; 97168 ==

== ENCOUNTER 2022-11-29 11:53 | Emergency (ER) | payer MEDICARE, OTHER, SELFPAY ==
[2022-11-29 11:56] VITALS: BP 155/72; PULSE 66; RESP 15; TEMP 36.4; O2SAT 99
[2022-11-29 12:04] VITALS: BP 160/88; PULSE 66; RESP 18; TEMP 36.6; O2SAT 95
--- NOTE | 2022-11-29 12:19 | W.ED.HEATRA ---
HPI - Head Injury General: Chief complaint: Head Injury Stated complaint: fell/ hit head Time Seen by Provider: 11/29/22 12:18 History of Present Illness: Ms. Frausto is a 72-year-old lady with prior history of stroke with right-sided residual deficits presenting to the emergency department for fall with head strike and concern for vision changes post head injury. She reports losing her balance yesterday while walking to the house falling backwards striking her head. No loss of consciousness. Does not endorse dizziness or lightheadedness, no preceding chest pain or shortness of breath. Does look like she had recent medication change adding ropinirole but is unsure if this contributed. Has baseline visual loss in 1 eye however now notes that vision seems to be worse that she describes as blurry. Family also thought maybe her pupils were unequal though unsure if this is normal for her. Also notes right hip and right shoulder pain which is aching and mild. Has been able to ambulate. No other specific changes in health, exacerbating, or alleviating factors identified. Onset (ago): hour(s) Mechanism of Injury: fall Loss of Consciousness: no Location of injury: occipital Associated symptoms: Reports visual changes Review of Systems General: Reports: 10 or more systems reviewed and unremarkable except in HPI and below PFSH ED PFSH: Medical History History of hypertension Hx of cardiac murmur Hx of diastolic dysfunction Hx of diverticulitis of colon Hx of gastritis Hx of osteoarthritis Hx of rheumatoid arthritis Hx of thrombocytopenia Hx of type 2 diabetes mellitus Mixed hyperlipidemia Murmur Uncontrolled hypertension Vitamin D deficiency Surgical History History of back surgery Hx of cholecystectomy Hx of tubal ligation Family History Mother Bleeding disorder Clotting disorder Sister Cancer Brother Cancer Sister Cancer Brother Cancer Father Dementia Grandmother Diabetes Stroke Denies family history of CAD (coronary artery disease) Chronic kidney disease (CKD) Suicide Anesthesia complication Lung disease Social History Smoking and tobacco status: never smoked Alcohol intake: never Substance/Drug Use: never Physical Exam Const: COMMON NORMALS: alert GENERAL APPEARANCE: cooperative and well developed HENMT: COMMON NORMALS: normocephalic and atraumatic HEAD & SCALP: normocephalic and atraumatic OTHER: No lanza signs or raccoon eyes. No hemotympanum. No otorrhea or rhinorrhea. Jaw alignment normal. Dentition baseline. No obvious bony step-offs. No septal hematoma. No evidence of ocular entrapment. Eye: COMMON NORMALS: conjunctivae normal CONJUNCTIVA: Yes conjunctivae normal SCLERA: sclerae normal OTHER: Approximately 2 mm difference in pupil size, unsure if baseline anisocoria or new. PERRLA. Neck/C-Spine: COMMON NORMALS: supple GENERAL: Yes trachea midline Resp: COMMON NORMALS: clear to auscultation bilaterally EFFORT & INSPECTION: Yes able to speak in complete sentences AUSCULTATION: clear to auscultation bilaterally Cardio: COMMON NORMALS: regular rate and regular rhythm RATE: regular rate RHYTHM: regular rhythm GI: COMMON NORMALS: Soft to palpation PALPATION: Yes Soft to palpation and No Tenderness to palpation present (GI) PERCUSSION: normal to percussion Extremity: NARRATIVE EXTREMITY EXAM: Right shoulder mild tenderness to palpation without bony deformity or step-off. Similar right hip. Distal CMS intact. GENERAL: Yes normal exam except as noted and No edema Neuro: COMMON NORMALS: moves all extremities SENSORIUM/ORIENTATION: Yes alert and No Orientation impaired OTHER: Right-sided weakness reportedly baseline most pronounced right upper extremity. Psych: COMMON NORMALS: mental status grossly normal and Normal thought process present THOUGHT PROCESS: Normal thought process present Course Vital Signs: Vital signs: Vital Signs Temperature 98 F 11/29/22 14:23 Pulse Rate 80 11/29/22 14:23 Respiratory Rate 18 11/29/22 14:23 Blood Pressure 143/62 11/29/22 14:23 Pulse Oximetry 98 11/29/22 14:23 Oxygen Delivery Me thod Room Air 11/29/22 12:34 MDM - Head Injury Medcial Decision Making 72-year-old lady presenting with fall. Head to toe exam performed. Nontoxic. EKG demonstrates sinus rhythm with normal axis and intervals, nonspecific ST segment and maladies, no STEMI. No leukocytosis, baseline normocytic anemia. No significant electrolyte derangement to explain fall. CT head and cervical spine negative for acute interval injury or fracture. X-rays negative for fracture. Patient likely has right shoulder bursitis/calcific tendinitis as cause of pain. No reason to suspect infectious etiology. Normal IOP and blurry eye, chronically elevated and otherwise reportedly. [id number] ocular ultrasound reveals no acute abnormality as observed. The results of ED evaluation were discussed with the patient including prescriptions and/or symptomatic cares (if applicable) including appropriate and responsible use, followup plan, and return precautions. The patient verbalized understanding and felt safe for discharge. Medical Records I reviewed the patient's medical records. Lab Data I reviewed the patient's lab results. 11/29/22 13:00 11/29/22 13:00 Radiology Impressions Cervical Spine CT 11/29/22 12:20 IMPRESSION: 1. No acute cervical spine fracture. 2. Multilevel central and foraminal stenoses as described above. Head CT 11/29/22 12:20 IMPRESSION: 1. No acute intracranial hemorrhage or edema. 2. Moderate atrophy and small vessel ischemic disease. Mild progression of atrophy and microvascular disease since 2021. Hip/Pelvis X-Ray 11/29/22 12:40 Impression: 1. Mild osteoarthritis of the right hip. 2. Negative for right hip fracture. Tonnis classification: grade 1: sclerosis of femoral head and acetabulum or slight joint space narrowing or slight lipping at joint margins Shoulder X-Ray 11/29/22 12:40 Impression: Possible calcific tendinitis and/or bursitis of the right shoulder. Laboratory Results WBC 4.2 10^3/uL (4.0-10.0) 11/29/22 13:00 RBC 3.78 10^6/uL (4.1-5.3) L 11/29/22 13:00 Hgb 10.6 g/dL (11.5-15.3) L 11/29/22 13:00 Hct 33.8 % (37.0-47.0) L 11/29/22 13:00 MCV 89.4 fl (81-99) 11/29/22 13:00 MCH 28.0 pg (28.0-34.0) 11/29/22 13:00 MCHC 31.4 g/dL (30.0-36.0) 11/29/22 13:00 RDW 13.2 % (12.1-15.1) 11/29/22 13:00 Plt Count 118 10^3/cmm (130-400) L 11/29/22 13:00 MPV 12.4 fL (7.4-10.4) H 11/29/22 13:00 Neut % (Auto) 64.1 % 11/29/22 13:00 Lymph % (Auto) 19.5 % 11/29/22 13:00 [place] % (Auto) 12.6 % 11/29/22 13:00 Eos % (Auto) 3.1 % 11/29/22 13:00 Baso % (Auto) 0.5 % 11/29/22 13:00 Neut # (Auto) 2.70 10^3/uL (1.8-7.7) 11/29/22 13:00 Lymph # (Auto) 0.8 10^3/uL (0.8-4.8) 11/29/22 13:00 [place] # (Auto) 0.5 10^3/uL (0.2-0.9) 11/29/22 13:00 Eos # (Auto) 0.1 10^3/uL (0.0-0.8) 11/29/22 13:00 Baso # (Auto) 0.0 10^3/uL (0.0-0.1) 11/29/22 13:00 Nucleated RBC % (auto) 0 % 11/29/22 13:00 Nucleated RBCs # 0.0 /100WBC 11/29/22 13:00 Sodium 140 mmol/L (136-145) 11/29/22 13:00 Potassium 3.9 mmol/L (3.5-5.1) 11/29/22 13:00 Chloride 104 mmol/L (98-107) 11/29/22 13:00 Carbon Dioxide 26 mmol/L (22-29) 11/29/22 13:00 Anion Gap 13.9 (5-19) 11/29/22 13:00 BUN 28 mg/dL (8-23) H 11/29/22 13:00 Creatinine 0.6 mg/dL (0.5-0.9) 11/29/22 13:00 GFR Calculation Not Reportable 11/29/22 13:00 Glucose 118 mg/dL (65-115) H 11/29/22 13:00 Calculated Osmolality 297 mOsm/kg (285-295) H 11/29/22 13:00 Calcium 9.4 mg/dL (8.5-10.5) 11/29/22 13:00 Discharge Plan Discharge Patient Disposition: Home Clinical Impression: Closed head injury, Blurred vision, right eye, Fall Condition: Stable Prescriptions: No Action clopidogrel 75 mg tablet 75 tab PO DAILY (DME) diabetic shoes See Rx Instructions .Route .MEDSUPPLY Qty: 2 0RF Rx Instructions: diabetic shoes (DME) Dexcom G6 Sensor Device See Rx Instructions .Route Qty: 3 0RF Rx Instructions: As directed ([facility] [place]) Dexcom G6 Supervisor Cartography Misc See Rx Instructions .Route Qty: 1 0RF Rx Instructions: As directed ([facility] [place]) Dexcom G6 Transmitter Device See Rx Instructions .Route Qty: 1 0RF Rx Instructions: As directed ropinirole 0.25 mg tablet PO isosorbide dinitrate 30 mg tablet 15 mg PO DAILY Qty: 45 3RF lisinopril 5 mg tablet See Rx Instructions .ROUTE .COMPLEX Qty: 90 5RF Dose Instruction: TAKE 1 TABLET BY MOUTH EVERY DAY. MUST MAKE APPOINTMENT AND BE SEEN PRIOR TO ANY MORE REFILLS Rx Instructions: TAKE 1 TABLET BY MOUTH EVERY DAY. MUST MAKE APPOINTMENT AND BE SEEN PRIOR TO ANY MORE REFILLS hydrochlorothiazide 12.5 mg tablet See Rx Instructions .ROUTE .COMPLEX Qty: 60 5RF Dose Instruction: TAKE 1 TABLET BY MOUTH EVERY DAY. MUST CALL AND MAKE APPT Rx Instructions: TAKE 1 TABLET BY MOUTH EVERY DAY. MUST CALL AND MAKE APPT gabapentin 300 mg capsule See Rx Instructions .ROUTE .COMPLEX Qty: 90 5RF Dose Instruction: TAKE 3 CAPSULES BY MOUTH DAILY FOR 30 DAYS Rx Instructions: TAKE 3 CAPSULES BY MOUTH DAILY FOR 30 DAYS escitalopram oxalate 10 mg tablet See Rx Instructions .ROUTE .COMPLEX Qty: 30 1RF Dose Instruction: TAKE 1 TABLET BY MOUTH EVERY DAY Rx Instructions: TAKE 1 TABLET BY MOUTH EVERY DAY naproxen 500 mg tablet See Rx Instructions .ROUTE .COMPLEX Qty: 60 5RF Dose Instruction: TAKE ONE TABLET BY MOUTH TWICE DAILY WITH FOOD Rx Instructions: TAKE ONE TABLET BY MOUTH TWICE DAILY WITH FOOD glipizide 2.5 mg tablet extended release 24hr See Rx Instructions .ROUTE .COMPLEX Qty: 30 5RF Dose Instruction: TAKE ONE TABLET BY MOUTH DAILY Rx Instructions: TAKE ONE TABLET BY MOUTH DAILY potassium chloride 20 mEq tablet,ER particles/crystals See Rx Instructions .ROUTE .COMPLEX Qty: 30 5RF Dose Instruction: TAKE ONE TABLET BY MOUTH EVERY DAY Rx Instructions: TAKE ONE TABLET BY MOUTH EVERY DAY amlodipine 5 mg tablet 5 mg PO DAILY Discharge Orders: Discharge ED (Routine); Ordered 11/29/22 Ordered By: Paul Muniz Referrals: Julia Ferreira FNP [Primary Care Provider] - Discharge Diet: Usual diet Discharge Activity: Increase activity as tolerated Patient Instructions: Fall Prevention for Older Adults (ED), Head Injury (ED), Blurred Vision (ED) Activity Restrictions/Additional Instructions: Thank you for visiting the emergency department. You were seen and evaluated for fall with blurred vision and head injury. The exact cause of your symptoms is unclear however does not need hospitalization at this time. You may use eerz-bhb-mgriqri medications such as acetaminophen and ibuprofen for pain however please do not exceed the daily recommended dosage as listed on the packaging and please keep in mind that many namebrand medications contain the same active ingredients. Please avoid these medications if previously instructed to do so by another physician due to other underlying medical condition. I recommend follow-up with ophthalmology and please contact your neurologist for further instructions regarding medication. Return for uncontrolled symptoms, any new neurologic symptoms, or anything else that you are concerned about and feel needs emergency department evaluation. Coding Level of Care Code ED Supervisor [employer] for Lebron Donald
--- NOTE | 2022-11-29 12:20 | CT_ITS ---
WS: [email or web address] CT HEAD NONCONTRAST HISTORY: fall, headstrike TECHNIQUE: Contiguous axial imaging performed through the brain in 2.5 mm imaging. Bone and soft tiss ue windows. Sagittal and coronal reformats reviewed. All CT scans at [facility] use at least one of these dose optimization techniques: automated exposure control; mA and/or kV adjustment per pa tient size (includes targeted exams where dose is matched to clinical indication); or iterative recon struction. DLP: 1215.97 mGy.cm COMPARISON: 01/10/2022 No acute intracranial hemorrhage, midline shift or mass effect. Moderate atrophy and small vessel ischemic disease. Several small lacunar infarcts in the basal gangl ia. Ventricles: Mild ventriculomegaly on the basis of atrophy. No inferior displacement of cerebellar tonsils. Paranasal sinuses: As visualized are clear. Mastoid air cells: Well pneumatized. Calvarium and scalp: Skull is intact with no soft tissue edema or swelling. CT/CT head wo con* [id number] IMPRESSION: 1. No acute intracranial hemorrhage or edema. 2. Moderate atrophy and small vessel ischemic disease. Mild progression of atr ophy and microvascular disease since 2021.
--- NOTE | 2022-11-29 12:20 | CT_ITS ---
WS: [email or web address] CT CERVICAL SPINE HISTORY: fall, headstrike TECHNIQUE: Contiguous 2.0 mm axial imaging performed through the entire cervical spine. Sagittal and coronal reformats also performed. All CT scans at [facility] use at least one of these dose o ptimization techniques: automated exposure control; mA and/or kV adjustment per patient size (include s targeted exams where dose is matched to clinical indication); or iterative reconstruction. DLP: 1215.97 mGy.cm COMPARISON: None available. Straightening of the normal cervical lordosis. Moderate disc space narrowing at C4-5 and C5-C6. Facet joints are normally aligned. Craniocervical junction is normal. C1 and C2 are aligned. Odontoid inta ct. C2-C3: Moderate LEFT foraminal stenosis. C3-C4: Osteophytic ridging. Mild foraminal stenosis. C4-C5: Osteophytic ridging encroaching upon the ventral thecal sac. Mild central with moderate bilate ral foraminal stenosis. C5-C6: Osteophytic ridging encroaching upon the ventral thecal sac. Moderate central with severe bila teral foraminal stenosis. C6-C7: Osteophytic ridging encroaching upon the thecal sac. Severe LEFT and moderate RIGHT foraminal stenosis. C7-T1: Normal. Small bilateral cervical chain lymph nodes. Calcification in the carotid arteries. CT/CT cervical spin wo con* [id number] IMPRESSION: 1. No acute cervical spine fracture. 2. Multilevel central and foraminal stenoses as described above.
[2022-11-29 12:34] VITALS: PULSE 62; RESP 18; O2SAT 97
--- NOTE | 2022-11-29 12:39 | ECG_ITS ---
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 Measurements Intervals [place] Rate: 60 P: 11 NJ: 163 QRS: -9 QRSD: 74 T: 16 QT: 411 QTc: 411 Interpretive Statements SINUS RHYTHM LOW QRS VOLTAGE IN PRECORDIAL LEADS [QRS DEFLECTION < 1.0 mV IN CHEST LEADS] PATTERN CONSISTENT WITH PULMONARY DISEASE No previous ECG available for comparison Electronically Signed On 11-29-2022 15:28:03 CDT by Tobias Lau M.D. [id number]
--- NOTE | 2022-11-29 12:40 | XR_ITS ---
WS: [email or web address] Right shoulder, 3 views, 11/29/2022 Clinical Data: fall Comparison: None. Findings: No fractures or dislocations are seen. The AC joint is normal. The adjacent right clavicle, right sca pula and ribs are normal. There is a small calcification adjacent to the greater tuberosity consisten t with calcific tendinitis and/or bursitis XR/XR shoulder RT min 2V* [id number] Impression: Possible calcific tendinitis and/or bursitis of the right shoulder.
--- NOTE | 2022-11-29 12:40 | XR_ITS ---
WS: [email or web address] Right hip, AP and frog-leg views, 11/29/2022 Clinical Data: fall Comparison: None. Findings: No fractures or dislocations are seen. The hip joint is intact. The right hip shows no erosion, scler osis, narrowing or fragmentation of the right femoral head. There is an acetabular lip. The soft tiss ues are not remarkable. The adjacent pelvis is normal. XR/XR hip RT 2-3V wo/w pel* [id number] Impression: 1. Mild osteoarthritis of the right hip. 2. Negative for right hip fracture. Tonnis classification: grade 1: sclerosis of femoral head and acetabulum or sli ght joint space narrowing or slight lipping at joint margins
[2022-11-29 13:04] VITALS: BP 143/62
[2022-11-29 13:32] LABS: Basophils % 0.5 %; Eosinophils # 0.1 10^3/uL (0.0-0.8); Eosinophils % 3.1 %; Hematocrit 33.8 % (37.0-47.0); Hemoglobin 10.6 g/dL (11.5-15.3); Lymphocytes # 0.8 10^3/uL (0.8-4.8); Lymphocytes % 19.5 %; Mean Corpuscular HGB Conc 31.4 g/dL (30.0-36.0); Mean Corpuscular Volume 89.4 fl (81-99); Mean Platelet Volume 12.4 fL (7.4-10.4); Monocytes # 0.5 10^3/uL (0.2-0.9); Monocytes % 12.6 %; Neutrophils % 64.1 %; Nucleated Red Blood Cells % 0 %; Platelet Count 118 10^3/cmm (130-400); Red Blood Count 3.78 10^6/uL (4.1-5.3); Red Cell Distribution Width 13.2 % (12.1-15.1); White Blood Count 4.2 10^3/uL (4.0-10.0)
[2022-11-29 13:40] LABS: Anion Gap 13.9 (5-19); Blood Urea Nitrogen 28 mg/dL (8-23); Calcium 9.4 mg/dL (8.5-10.5); Carbon Dioxide 26 mmol/L (22-29); Chloride 104 mmol/L (98-107); Creatinine Clr Calc Pharmacy 49.0314; Glucose 118 mg/dL (65-115); Osmolality Calculated 297 mOsm/kg (285-295); Potassium 3.9 mmol/L (3.5-5.1); Sodium 140 mmol/L (136-145)
[2022-11-29] MEDS: tetracaine 0.5% Op Soln 4 mL Btl 1 DROP EYE-BOTH (13:53)
[2022-11-29 14:23] VITALS: BP 143/62; PULSE 80; RESP 18; TEMP 36.6; O2SAT 98
== END 2022-11-29 14:37 | disposition home or self-care (01) ==
PROVIDERS: Emergency Provider Emergency Medicine; PCP Nurse Practitioner
DX: S09.8XXA Other specified injuries of head, initial encounter (principal); H53.8 Other visual disturbances; Z79.02 Long term (current) use of antithrombotics/antiplatelets; Z79.84 Long term (current) use of oral hypoglycemic drugs; I10 Essential (primary) hypertension; E11.9 Type 2 diabetes mellitus without complications; E78.2 Mixed hyperlipidemia; W18.39XA Other fall on same level, initial encounter
CPT/HCPCS: 36415; 70450; 72125; 73030; 73502; 80048; 85025; 93005; 99285

== ENCOUNTER 2022-12-28 06:00 | Outpatient (RCR) | payer MEDICARE, OTHER, SELFPAY | END 2023-01-26 23:59 | disposition home or self-care (01) | LOC: WOT 06:00 | PROVIDERS: PCP Nurse Practitioner; Visit Provider Nurse Practitioner | DX: I69.30 Unspecified sequelae of cerebral infarction (principal); I10 Essential (primary) hypertension | CPT/HCPCS: 97110; 97530 ==

== ENCOUNTER → 2023-01-09 09:29 | Outpatient (BNVA) | payer MEDICARE, OTHER, SELFPAY | PROVIDERS: PCP Nurse Practitioner; Visit Provider Internal Medicine Cardiovascular Disease | DX: R94.39 Abnormal result of other cardiovascular function study (principal); I10 Essential (primary) hypertension; Z86.39 Personal history of other endocrine, nutritional and metabolic disease; E78.2 Mixed hyperlipidemia; Z86.79 Personal history of other diseases of the circulatory system; I69.30 Unspecified sequelae of cerebral infarction; G11.9 Hereditary ataxia, unspecified | CPT/HCPCS: 99214 ==

== ENCOUNTER → 2023-01-10 16:02 | Outpatient (BNVA) | payer MEDICARE, OTHER, SELFPAY | PROVIDERS: PCP Nurse Practitioner; Visit Provider Nurse Practitioner | DX: Z86.39 Personal history of other endocrine, nutritional and metabolic disease (principal); E11.9 Type 2 diabetes mellitus without complications | CPT/HCPCS: 83036 ==

== ENCOUNTER 2023-01-27 06:00 | Outpatient (RCR) | payer MEDICARE, OTHER, SELFPAY | END 2023-02-26 23:59 | disposition home or self-care (01) | LOC: WOT 06:00 | PROVIDERS: PCP Nurse Practitioner; Visit Provider Nurse Practitioner | DX: I69.993 Ataxia following unspecified cerebrovascular disease (principal) | CPT/HCPCS: 97110; 97112; 97530 ==

== ENCOUNTER 2023-02-27 06:00 | Outpatient (RCR) | payer MEDICARE, OTHER, SELFPAY | END 2023-03-28 23:59 | disposition home or self-care (01) | LOC: WOT 06:00 | PROVIDERS: PCP Nurse Practitioner; Visit Provider Nurse Practitioner | DX: I69.30 Unspecified sequelae of cerebral infarction (principal) | CPT/HCPCS: 97110; 97168; 97530; A9281 ==

== ENCOUNTER 2023-03-29 06:00 | Outpatient (RCR) | payer MEDICARE, OTHER, SELFPAY | END 2023-04-28 23:59 | disposition home or self-care (01) | LOC: WOT 06:00 | PROVIDERS: PCP Nurse Practitioner; Visit Provider Nurse Practitioner | DX: I69.90 Unspecified sequelae of unspecified cerebrovascular disease (principal) | CPT/HCPCS: 97110; 97166; 97530 ==

== ENCOUNTER → 2023-04-11 16:39 | Outpatient (BNVA) | payer MEDICARE, OTHER, SELFPAY | PROVIDERS: PCP Nurse Practitioner; Visit Provider Nurse Practitioner Family | DX: I73.9 Peripheral vascular disease, unspecified (principal); R32 Unspecified urinary incontinence; N32.81 Overactive bladder; R30.0 Dysuria | CPT/HCPCS: 81000 ==

== ENCOUNTER 2023-04-17 13:24 | Outpatient (CLI) | payer MEDICARE, OTHER, SELFPAY ==
--- NOTE | 2023-04-17 14:00 | USCV_ITS ---
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
== END 2023-04-17 13:25 | disposition home or self-care (01) ==
LOC: RAD 13:24
PROVIDERS: PCP Nurse Practitioner; Visit Provider Nurse Practitioner Family
DX: I73.9 Peripheral vascular disease, unspecified (principal)
CPT/HCPCS: 93922

== ENCOUNTER 2023-04-29 06:00 | Outpatient (RCR) | payer MEDICARE, OTHER, SELFPAY | END 2023-05-29 23:59 | disposition home or self-care (01) | LOC: WOT 06:00 | PROVIDERS: PCP Nurse Practitioner; Visit Provider Nurse Practitioner | DX: I69.90 Unspecified sequelae of unspecified cerebrovascular disease (principal); I10 Essential (primary) hypertension | CPT/HCPCS: 97110; 97165; 97530 ==

== ENCOUNTER → 2023-05-09 13:44 | Outpatient (BNVA) | payer MEDICARE, OTHER, SELFPAY | PROVIDERS: PCP Nurse Practitioner; Visit Provider Nurse Practitioner Family | DX: G11.9 Hereditary ataxia, unspecified (principal); R48.8 Other symbolic dysfunctions; R53.1 Weakness; I69.30 Unspecified sequelae of cerebral infarction; E78.5 Hyperlipidemia, unspecified; I10 Essential (primary) hypertension; E78.2 Mixed hyperlipidemia; Z86.39 Personal history of other endocrine, nutritional and metabolic disease; E55.9 Vitamin D deficiency, unspecified; Z79.899 Other long term (current) drug therapy; D64.9 Anemia, unspecified | CPT/HCPCS: 80053; 80061; 81003; 82306; 83036; 83550; 84443; 85025 ==

== ENCOUNTER 2023-05-30 06:00 | Outpatient (RCR) | payer MEDICARE, OTHER, SELFPAY | END 2023-06-27 23:59 | disposition home or self-care (01) | LOC: WOT 06:00 | PROVIDERS: PCP Nurse Practitioner; Visit Provider Nurse Practitioner | DX: I69.90 Unspecified sequelae of unspecified cerebrovascular disease (principal); I10 Essential (primary) hypertension | CPT/HCPCS: 97530 ==

== ENCOUNTER 2023-06-28 06:00 | Outpatient (RCR) | payer MEDICARE, OTHER, SELFPAY | END 2023-07-28 23:59 | disposition home or self-care (01) | LOC: WOT 06:00 | PROVIDERS: PCP Nurse Practitioner Family; Visit Provider Nurse Practitioner | DX: I69.993 Ataxia following unspecified cerebrovascular disease (principal); I10 Essential (primary) hypertension | CPT/HCPCS: 97530 ==

== ENCOUNTER → 2023-07-24 09:32 | Outpatient (BNVA) | payer MEDICARE, OTHER, SELFPAY | PROVIDERS: PCP Nurse Practitioner Family; Visit Provider Internal Medicine Cardiovascular Disease | DX: I11.9 Hypertensive heart disease without heart failure (principal); E78.2 Mixed hyperlipidemia; R93.1 Abnormal findings on diagnostic imaging of heart and coronary circulation; I69.30 Unspecified sequelae of cerebral infarction; E11.9 Type 2 diabetes mellitus without complications; Z79.84 Long term (current) use of oral hypoglycemic drugs | CPT/HCPCS: 99214 ==

== ENCOUNTER → 2023-09-11 07:48 | Outpatient (BNVA) | payer MEDICARE, OTHER, SELFPAY | PROVIDERS: PCP Nurse Practitioner Family; Referring Provider Nurse Practitioner Family; Visit Provider Specialist | DX: R29.90 Unspecified symptoms and signs involving the nervous system (principal); G31.85 Corticobasal degeneration | CPT/HCPCS: 99204; 99205 ==

== ENCOUNTER 2023-10-03 06:00 | Outpatient (RCR) | payer MEDICARE, OTHER, SELFPAY | END 2023-10-27 23:59 | disposition home or self-care (01) | LOC: WPT 06:00 | PROVIDERS: PCP Nurse Practitioner Family; Visit Provider Specialist | DX: G20.A1 Parkinson's disease without dyskinesia, without mention of fluctuations (principal) | CPT/HCPCS: 97110; 97112; 97163; 97530 ==

== ENCOUNTER 2023-10-28 06:00 | Outpatient (RCR) | payer MEDICARE, OTHER, SELFPAY | END 2023-11-27 23:59 | disposition home or self-care (01) | LOC: WPT 06:00 | PROVIDERS: PCP Nurse Practitioner Family; Visit Provider Specialist | DX: G20.A1 Parkinson's disease without dyskinesia, without mention of fluctuations (principal); G31.85 Corticobasal degeneration | CPT/HCPCS: 97110; 97112; 97530 ==

== ENCOUNTER → 2023-12-05 14:56 | Outpatient (BNVA) | payer MEDICARE, OTHER, SELFPAY | PROVIDERS: PCP Nurse Practitioner Family; Visit Provider Nurse Practitioner Family | DX: I10 Essential (primary) hypertension (principal); E55.9 Vitamin D deficiency, unspecified; E78.2 Mixed hyperlipidemia; Z86.2 Personal history of diseases of the blood and blood-forming organs and certain disorders involving the immune mechanism; Z86.39 Personal history of other endocrine, nutritional and metabolic disease; D50.8 Other iron deficiency anemias; I73.9 Peripheral vascular disease, unspecified | CPT/HCPCS: 80053; 80061; 81003; 82306; 82728; 83036; 83550; 84443; 85025 ==

== ENCOUNTER → 2023-12-11 14:42 | Outpatient (BNVA) | payer MEDICARE, OTHER, SELFPAY | PROVIDERS: PCP Nurse Practitioner Family; Visit Provider Specialist | DX: R29.90 Unspecified symptoms and signs involving the nervous system (principal); G31.85 Corticobasal degeneration | CPT/HCPCS: 99214; 99215 ==

== ENCOUNTER 2024-01-21 15:00 | Oncology outpatient (recurring) (ONCR) | payer MEDICARE, OTHER, SELFPAY ==
[2024-01-14] MEDS: sodium chloride 0.9% 250 ML 75 ML IV (14:37)
[2024-01-14] MEDS: ferric carboxy (PYXIS) 750 MG in sodium chloride 0.9% (100 ml) 100 ML 345 MG IV (14:38)
[2024-01-14 15:21] VITALS: BP 100/61; PULSE 85; RESP 16; TEMP 36.8; O2SAT 98
[2024-01-21 13:35] VITALS: BP 121/68; PULSE 69; RESP 16; TEMP 37.1; O2SAT 95
[2024-01-21] MEDS: ferric carboxy (PYXIS) 750 MG in sodium chloride 0.9% (100 ml) 100 ML 345 MG IV (13:51)
[2024-01-21 14:30] VITALS: BP 153/71; PULSE 67; RESP 17; TEMP 35.9; O2SAT 99
== END 2024-01-27 23:59 | disposition home or self-care (01) ==
PROVIDERS: PCP Nurse Practitioner Family; Visit Provider Nurse Practitioner Family
DX: Z79.899 Other long term (current) drug therapy (principal); D50.9 Iron deficiency anemia, unspecified; Z53.9 Procedure and treatment not carried out, unspecified reason
CPT/HCPCS: 96365; J1439; J7050

== ENCOUNTER → 2024-01-22 09:32 | Outpatient (BNVA) | payer MEDICARE, OTHER, SELFPAY | PROVIDERS: PCP Nurse Practitioner Family; Visit Provider Internal Medicine Cardiovascular Disease | DX: I11.9 Hypertensive heart disease without heart failure (principal); D69.6 Thrombocytopenia, unspecified; E78.2 Mixed hyperlipidemia; E11.51 Type 2 diabetes mellitus with diabetic peripheral angiopathy without gangrene; R93.1 Abnormal findings on diagnostic imaging of heart and coronary circulation; Z79.84 Long term (current) use of oral hypoglycemic drugs | CPT/HCPCS: 99214 ==

== ENCOUNTER 2024-01-29 20:36 | Emergency (ER) | payer MEDICARE, OTHER, SELFPAY ==
[2024-01-29 20:37] VITALS: BP 133/78; PULSE 76; RESP 18; TEMP 36.9; O2SAT 96; BMI 29.2
--- NOTE | 2024-01-29 20:45 | W.ED.NAVMDI ---
HPI - Nausea/Vomiting/Diarrhea General: Chief complaint: Nausea/Vomiting/Diarrhea Stated complaint: shaking, nausea Time Seen by Provider: 01/29/24 20:38 History of Present Illness: 73-year-old woman who was on hospice for Parkinson's who presents emergency room by ambulance with nausea and worsening parkinsonian tremor/restless legs. She has been taking 0.5 mg of lorazepam. Was concerned she might be a little bit dehydrated. Related Data Home Medications Medication Instructions Recorded Confirmed clopidogrel 75 mg tablet 75 tab PO DAILY 05/02/22 01/01/24 dorzolamide 22.3 mg-timolol 6.8 1 drp ophthalmic (eye) ONCE 02/07/23 01/01/24 mg/mL eye drops latanoprost 0.005 % eye drops 1 drp ophthalmic (eye) DAILY 02/07/23 01/01/24 Previous Rx's Medication Instructions Recorded diabetic shoes #2 ea 05/02/22 blood-glucose meter,continuous #1 ea 09/27/22 (Dexcom G6 [employer]) blood-glucose sensor (Dexcom G6 #3 ea 09/27/22 Sensor device) blood-glucose transmitter (Dexcom #1 ea 09/27/22 G6 Transmitter device) hydrochlorothiazide 12.5 mg tablet See Rx Instructions .Route 04/10/23 .COMPLEX #60 tabs ferric carboxymaltose 50 mg 750 mg (15 mL) IV Q7D 2 doses #15 05/30/23 iron/mL intravenous solution mL (Injectafer) naproxen 500 mg tablet See Rx Instructions .Route 10/15/23 .COMPLEX #60 tabs potassium chloride 20 mEq See Rx Instructions .Route 10/15/23 tablet,extended release(part/cryst) .COMPLEX #30 tabs isosorbide dinitrate 30 mg tablet 15 mg (1/2 x 30 mg) PO DAILY #45 12/04/23 tabs gabapentin 300 mg capsule See Rx Instructions .Route 12/05/23 .COMPLEX #90 caps solifenacin 5 mg tablet See Rx Instructions .Route 12/05/23 .COMPLEX #30 tabs carbidopa 25 mg-levodopa 100 mg See Rx Instructions PO TID 30 days 12/11/23 tablet #300 tabs quetiapine 25 mg tablet (Seroquel) 25 mg PO Q6H PRN anxiety #30 tabs 01/02/24 quetiapine 25 mg tablet (Seroquel) 25 mg PO Q6H PRN withdrawal 01/03/24 symptoms #120 tabs amlodipine 5 mg tablet See Rx Instructions .Route 01/06/24 .COMPLEX #90 tabs escitalopram oxalate 10 mg tablet See Rx Instructions .Route 01/06/24 .COMPLEX #90 tabs glipizide 2.5 mg tablet, extended See Rx Instructions .Route 01/06/24 release 24 hr .COMPLEX #90 tabs nystatin 100,000 unit/gram topical 1 applic topical TID #60 grams 01/16/24 powder ondansetron 8 mg disintegrating 8 mg PO Q6H #14 tabs 01/29/24 tablet Allergies Allergy/AdvReac Type Severity Reaction Status Date / Time pseudoephedrine Allergy unknown Verified 01/22/24 09:50 Review of Systems Narrative: Constitutional symptoms: Negative except as documented in HPI. Skin symptoms: Negative except as documented in HPI. Eye symptoms: Negative except as documented in HPI. ENMT symptoms: Negative except as documented in HPI. Respiratory symptoms: Negative except as documented in HPI. Cardiovascular symptoms: Negative except as documented in HPI. Gastrointestinal symptoms: Negative except as documented in HPI. Genitourinary symptoms: Negative except as documented in HPI. Musculoskeletal symptoms: Negative except as documented in HPI. Neurologic symptoms: Negative except as documented in HPI. Psychiatric symptoms: Negative except as documented in HPI. Endocrine symptoms: Negative except as documented in HPI. PFS ED PFSH: Medical History Intestinal malabsorption Iron deficiency anemia Excessive cerumen in left ear canal Otitis media History of cerebrovascular accident (CVA) with residual deficit OAB (overactive bladder) Urinary incontinence Peripheral arterial disease Cat bite of hand Abnormal cardiovascular stress test OCONNOR (dyspnea on exertion) Benign essential hypertension with target blood pressure below 140/90 Murmur Vitamin D deficiency Mixed hyperlipidemia Hx of osteoarthritis Hx of cardiac murmur Hx of thrombocytopenia Hx of rheumatoid arthritis Hx of diverticulitis of colon Hx of type 2 diabetes mellitus Hx of gastritis History of hypertension Uncontrolled hypertension Hx of diastolic dysfunction Surgical History History of back surgery Hx of cholecystectomy Hx of tubal ligation Family History Mother Bleeding disorder Clotting disorder Sister Cancer Brother Cancer Sister Cancer Brother Cancer Father Dementia Grandmother Diabetes Stroke Denies family history of CAD (coronary artery disease) Chronic kidney disease (CKD) Suicide Anesthesia complication Lung disease Social History Smoking and tobacco/nicotine status: never used tobacco/nicotine Alcohol intake: never Substance/Drug Use: never Physical Exam Narrative: EXAM NARRATIVE: General: Alert, no acute distress. Skin: Warm, dry. Head: Normocephalic, atraumatic. Neck: Supple, trachea midline. Eye: Extraocular movements are intact. Ears, nose, mouth and throat: Tacky oral mucosa Cardiovascular: Regular, Normal peripheral perfusion. Respiratory: Lungs are clear to auscultation, respirations are non-labored, breath sounds are equal, Symmetrical chest wall expansion. Gastrointestinal: Soft, Nontender, Non distended Musculoskeletal: Normal ROM, no deformity. Neurological: Alert and oriented, No focal neurological deficit observed. Patient does have a very coarse parkinsonian type movements of her arms and legs. Psychiatric: Cooperative, appropriate mood & affect. Course Vital Signs: Vital signs: Vital Signs Temperature 98.5 F 01/29/24 20:37 Pulse Rate 76 01/29/24 20:37 Respiratory Rate 18 01/29/24 20:37 Blood Pressure 133/78 01/29/24 20:37 Pulse Oximetry 96 01/29/24 20:37 MDM - Nausea/Vomiting/Diarrhea Medical Decision Making Assessment and plan: Dehydration Parkinson's Hospice patient ?Normal saline bolus and IV Ativan in the emergency room. - Discharged home - Discussed plan with patient. Answered any questions. - Evaluation and treatment of this problem were appropriate in the emergency setting. No radiology studies performed this visit Discharge Plan Discharge Patient Disposition: Home Clinical Impression: Parkinson disease, Dehydration, Nausea, Hospice care patient Condition: Stable Prescriptions: New ondansetron 8 mg tablet,disintegrating 8 mg PO Q6H Qty: 14 0RF Rx Instructions: Take 1/2-1 tab every 6 hours as needed for nausea and vomiting No Action latanoprost 0.005 % drops 1 drp ophthalmic (eye) DAILY dorzolamide-timolol 22.3-6.8 mg/mL drops 1 drp ophthalmic (eye) ONCE clopidogrel 75 mg tablet 75 tab PO DAILY (DME) diabetic shoes See Rx Instructions .Route .MEDSUPPLY Qty: 2 0RF Rx Instructions: diabetic shoes (DME) Dexcom G6 Sensor Device See Rx Instructions .Route Qty: 3 0RF Rx Instructions: As directed ([facility] [place]) Dexcom G6 [employer] Misc See Rx Instructions .Route Qty: 1 0RF Rx Instructions: As directed ([facility] [place]) Dexcom G6 Transmitter Device See Rx Instructions .Route Qty: 1 0RF Rx Instructions: As directed Injectafer 50 mg iron/mL solution 750 mg IV Q7D Qty: 15 0RF carbidopa-levodopa 25-100 mg tablet See Rx Instructions PO TID 30 Days Qty: 300 5RF Rx Instructions: orally three times daily; 4 tabs in the 9AM, 4 tabs at 1PM in the PM, & 2 tabs at bedtime hydrochlorothiazide 12.5 mg tablet See Rx Instructions .ROUTE .COMPLEX Qty: 60 5RF Dose Instruction: TAKE 1 TABLET BY MOUTH EVERY DAY. MUST CALL AND MAKE APPT Rx Instructions: TAKE 1 TABLET BY MOUTH EVERY DAY. MUST CALL AND MAKE APPT naproxen 500 mg tablet See Rx Instructions .ROUTE .COMPLEX Qty: 60 5RF Dose Instruction: TAKE ONE TABLET BY MOUTH TWICE DAILY WITH FOOD Rx Instructions: TAKE ONE TABLET BY MOUTH TWICE DAILY WITH FOOD potassium chloride 20 mEq tablet,ER particles/crystals See Rx Instructions .ROUTE .COMPLEX Qty: 30 5RF Dose Instruction: TAKE ONE TABLET BY MOUTH EVERY DAY Rx Instructions: TAKE ONE TABLET BY MOUTH EVERY DAY isosorbide dinitrate 30 mg tablet 15 mg PO DAILY Qty: 45 3RF gabapentin 300 mg capsule See Rx Instructions .ROUTE .COMPLEX Qty: 90 5RF Dose Instruction: TAKE 3 CAPSULES BY MOUTH DAILY FOR 30 DAYS Rx Instructions: TAKE 3 CAPSULES BY MOUTH DAILY FOR 30 DAYS solifenacin 5 mg tablet See Rx Instructions .ROUTE .COMPLEX Qty: 30 5RF Dose Instruction: TAKE 1 TABLET BY MOUTH DAILY Rx Instructions: TAKE 1 TABLET BY MOUTH DAILY quetiapine [Seroquel] 25 mg tablet 25 mg PO Q6H PRN (Reason: anxiety) Qty: 30 3RF quetiapine [Seroquel] 25 mg tablet 25 mg PO Q6H PRN (Reason: withdrawal symptoms) Qty: 120 3RF amlodipine 5 mg tablet See Rx Instructions .ROUTE .COMPLEX Qty: 90 0RF Dose Instruction: TAKE 1 TABLET BY MOUTH EVERY DAY Rx Instructions: TAKE 1 TABLET BY MOUTH EVERY DAY glipizide 2.5 mg tablet extended release 24hr See Rx Instructions .ROUTE .COMPLEX Qty: 90 0RF Dose Instruction: TAKE ONE TABLET BY MOUTH DAILY Rx Instructions: TAKE ONE TABLET BY MOUTH DAILY escitalopram oxalate 10 mg tablet See Rx Instructions .ROUTE .COMPLEX Qty: 90 0RF Dose Instruction: TAKE 1 TABLET BY MOUTH EVERY DAY Rx Instructions: TAKE 1 TABLET BY MOUTH EVERY DAY nystatin 100,000 unit/gram powder 1 applic topical TID Qty: 60 2RF Discharge Orders: Discharge ED (Routine); Ordered 01/29/24 Ordered By: Torie Walters Referrals: NABLIA Mann, DATABASE MARKETING SPECIALIST [Primary Care Provider] - Discharge Diet: Usual diet Patient Instructions: Opioid Safety, Pain Management Activity Restrictions/Additional Instructions: We will consider increasing your lorazepam from 0.5 mg to 1 to 1.5 mg at each dose. Zofran for your nausea. Push fluids. Speak with your hospice nurse. Thank you for choosing [facility] for your healthcare needs today. Please realize this is an emergency room and that we are providing you with a medical screening exam and this may not be complete and all inclusive of all the testing and or work up that you may need to determine your ailment or severity of your illness. You have been screened and evaluated and felt safe for discharge. Health conditions do change or evolve sometimes and as such it is important that you follow up with your Primary Doctor to be re checked, 3-5 days is a general good time frame for follow up. You are always welcome to return to the ED for re assessment if your symptoms are worsening or you have new concerns Coding Level of Care Code ED Jacqu[employer] Polisher Operator for Lebron Donald
[2024-01-29] MEDS: ondansetron 2 mg/ML SDV 2 mL 8 MG IVP (20:53)
[2024-01-29] MEDS: LORazepam 2 mg/mL INJ 1 mL IVP (20:54)
[2024-01-29] MEDS: sodium chloride 0.9% 1,000 ML 999 ML IV (20:55)
[2024-01-29 21:14] VITALS: BP 123/78; PULSE 78; RESP 16; O2SAT 97
[2024-01-29] MEDS: prochlorperazine 10 mg/2 mL Inj IVP (21:56)
[2024-01-29] MEDS: diphenhydrAMINE 50 mg/mL SDV 1mL 25 MG IVP (21:56)
[2024-01-29 22:14] VITALS: PULSE 82; RESP 18; O2SAT 98
[2024-01-29 23:04] VITALS: BP 116/68; PULSE 74; O2SAT 98
== END 2024-01-29 23:05 | disposition home or self-care (01) ==
PROVIDERS: Emergency Provider Emergency Medicine; PCP Nurse Practitioner Family
DX: G20.A1 Parkinson's disease without dyskinesia, without mention of fluctuations (principal); E86.0 Dehydration; R11.0 Nausea; Z51.5 Encounter for palliative care; Z79.02 Long term (current) use of antithrombotics/antiplatelets; Z79.84 Long term (current) use of oral hypoglycemic drugs; Z86.73 Personal history of transient ischemic attack (TIA), and cerebral infarction without residual deficits; I10 Essential (primary) hypertension; E78.2 Mixed hyperlipidemia; E11.9 Type 2 diabetes mellitus without complications
CPT/HCPCS: 96361; 96374; 96375; 99284; J0780; J1200; J2060; J2405; J7030